=== PATIENT | male | born 1980 ===

== ENCOUNTER 2017-10-04 19:37 | Emergency (ER) | payer SELFPAY ==
[2017-10-04] MEDS ORDERED: Ketorolac Tromethamine 60 MG/2 ML VIAL ONE (20:33)
--- NOTE | 2017-10-04 22:08 | CT ---
CT OF THE BRAIN WITHOUT CONTRAST: 10/04/17 COMPARISON: None. HISTORY: Right arm pain. Patient fell from a ladder earlier today. TECHNIQUE: Multiple contiguous axial images are obtained in a CT of the brain without contrast. FINDINGS: The brain is normal in morphology and attenuation without focal lesions or confluent areas of infarct ion. There is no evidence of hydrocephalus, intracranial hemorrhage or extra-axial fluid collections. The calvarium and overlying soft tissues are unremarkable. The visualized paranasal sinuses and masto id air cells are well aerated. IMPRESSION: No evidence of acute intracranial abnormality. POS: [facility]
--- NOTE | 2017-10-04 22:26 | RAD ---
FOUR VIEWS RIGHT ELBOW 10/04/17 HISTORY: Fracture right elbow needs a cast. Radial head fracture. AP, lateral and both oblique views right elbow is obtained. A comminuted partially impacted radial he ad fracture is seen. The fracture fragments are moderately displaced. No evidence of distal humeral o r olecranon abnormality seen. IMPRESSION: Status post casting of a radial head fracture. POS: [facility]
--- NOTE | 2017-10-04 23:10 | CT ---
CT OF THE FACE WITHOUT CONTRAST 10/04/17 COMPARISON: None. HISTORY: Fell from a ladder earlier today with facial trauma and pain. TECHNIQUE: Multiple contiguous axial images were obtained in a CT of the face without contrast. Sagittal and cor onal reformats were performed. FINDINGS: There is a small amount of fluid in some of the ethmoid air cells. Mild mucosal thickening is seen in the maxillary sinuses. No facial fractures are identified. The mastoid air cells are well aerated. T he globes and retrobulbar soft tissues are unremarkable. There is soft tissue swelling in the right f lexa with a small hematoma in the right cheek measuring 2.5 cm in size. IMPRESSION: Soft tissue swelling of the face without underlying facial fracture. POS: [facility]
== END 2017-10-04 22:25 | disposition home or self-care (01) ==
LOC: ERS 19:37
DX: S00.83XA Contusion of other part of head, initial encounter (principal); M79.601 Pain in right arm; F41.9 Anxiety disorder, unspecified; W11.XXXA Fall on and from ladder, initial encounter
CPT/HCPCS: 70450; 70486; 96372; J1885